=== PATIENT | male | born 1995 | race Caucasian/White ===

== ENCOUNTER 2017-07-22 16:05 | Emergency (ER) | payer MEDICAID, OTHER ==
[~2017-07-22] VITALS: Ht 175.3 cm; Wt 60.0 kg
[~2017-07-22 16:05] MED LIST: ADDE10XR PO; AMOX500T PO; VIST25CA PO
[2017-07-22 16:07] VITALS: BP 111/72; PULSE 82; RESP 16; TEMP 98.6; O2SAT 100
--- NOTE | 2017-07-22 16:29 | PD ---
HPI Chief Complaint: Injury Time Seen by Provider: 16:17 Travel History International Travel<30 days: No Contact w/Intl Traveler<30days: No Traveled to known affect area: No History of Present Illness HPI 21-year-old male presents to the emergency room for evaluation of left ankle pain and swelling after injuring it just prior to arrival. Patient states he was on his skateboard when he tried to do a trick and landed wrong on his ankle. He everted the ankle and heard popping and had immediate pain. States he has been able to hobble but not walk on it. States it swelled up within 5 minutes. He has not applied ice or taken anything for her symptoms. Came straight to the emergency room. No other injuries. Denies paresthesias. Denies chronic medical conditions or daily medications. PFSH Past Medical History Cancer: No Cardiovascular Problems: No Diminished Hearing: No Gastrointestinal Disorders: No Genitourinary: No Implanted Vascular Access Dvce: No Musculoskeletal: No Neurologic: No Psychiatric: No Reproductive: No Respiratory: No Past Surgical History Other Surgery: No Social History Alcohol Use: Yes Tobacco Use: No Substance Use: No Allergies-Medications (Allergen,Severity, Reaction): Coded Allergies: No Known Allergies (Verified , 10/17/15) Reported Meds & Prescriptions Reported Meds & Active Scripts Active Review of Systems Except as stated in HPI: all other systems reviewed are Neg Physical Exam Narrative GENERAL: Well-nourished, well-developed male in no acute distress. Afebrile. SKIN: Focused skin assessment warm/dry. HEAD: Normocephalic. EYES: No scleral icterus. No injection or drainage. NECK: Supple, trachea midline. No JVD or lymphadenopathy. CARDIOVASCULAR: Regular rate and rhythm without murmurs, gallops, or rubs. RESPIRATORY: Breath sounds equal bilaterally. No accessory muscle use. MUSCULOSKELETAL: No cyanosis. Moderate edema of the left lateral malleolus. 2 + dorsalis pedis pulse. Full range motion of the foot and knee. Negative squeeze test. Mild to moderate tenderness to palpation of the lateral malleolus. No medial ankle pain. No knee tenderness. Data Data Last Documented VS Vital Signs Date Time Temp Pulse Resp B/P (MAP) Pulse Ox O2 Delivery O2 Flow Rate FiO2 07/22/17 16:07 98.6 82 16 111/72 (85) 100 Orders Orders Ankle, Complete (Gun3mpy) (07/22/17 16:13) Crutches (07/22/17 17:18) Splint Or Brace Apply/Monitor (07/22/17 17:18) MDM Medical Decision Making Medical Screen Exam Complete: Yes Emergency Medical Condition: Yes Medical Record Reviewed: Yes Differential Diagnosis Sprain, strain, fracture, dislocation Narrative Course 21-year-old male presents to the emergency room for evaluation of left ankle pain and swelling after eversion injury just prior to arrival. Denies any other injuries. Physical exam reveals moderate tenderness to palpation and edema of the left lateral malleolus. No obvious ecchymosis or erythema. 2+ dorsalis pedis pulse and full range motion of the foot and knee. Negative squeeze test. X-ray shows probable fracture of the fifth metatarsal. Fracture does not appear to be displaced. Patient does not have significant pain over the fracture site. He was placed in a posterior short leg splint. Patient discharged with crutches and prescription for Lortab and ibuprofen. Told to follow-up with a primary care physician or return for worsening symptoms. He understands and agrees to plan. Diagnosis Primary Impression: Fracture of fifth metatarsal bone of left foot Qualified Codes: S92.355A - Nondisplaced fracture of fifth metatarsal bone, left foot, initial encounter for closed fracture Referrals: Primary Care Physician Additional Instructions: Use splint and crutches next 2 weeks, then as needed for pain. Lortab as directed, as needed for pain. Do not drink alcohol or drive while taking this medication. Take ibuprofen with food as directed, as needed for pain. Apply ice to the affected area for 20 minutes at a time, as needed for pain and swelling. Follow-up with a primary care physician. Return to the emergency room for worsening symptoms. Med/Other Pt SpecificInfo: Prescription(s) given Disposition: 01 DISCHARGE HOME Condition: Stable Shae Boone Jul 22, 2017 16:29
--- NOTE | 2017-07-22 17:15 | RADRPT ---
EXAM DATE/TIME: 07/22/2017 16:47 [facility] COMPARISON: No previous studies available for comparison. INDICATIONS : Left ankle pain after falling off skateboard and twisting ankle, heard a pop. MEDICAL HISTORY : None. SURGICAL HISTORY : None. ENCOUNTER: Initial ACUITY: 1 day PAIN SCORE: 5/10 LOCATION: Left ankle FINDINGS: 3 views of the left ankle. Extensive lateral superficial soft tissue swelling. Linear lucency is seen at the base of the fifth metatarsal suggesting a nondisplaced fracture. This is seen only on the lat eral view. No other fracture identified. CONCLUSION: Likely fifth metatarsal base fracture seen only on the lateral view. Prominent lateral lower leg soft tissue swelling. Fermín Cordova MD on July 22, 2017 at 17:12 Board Certified Radiologist. This report was verified electronically.
[2017-07-22] MEDS ORDERED: HYDR-3516 PO (17:52)
[2017-07-22] MEDS ORDERED: ACETAMINOPHEN/HYDROcodone 325 MG/5 MG TAB PO ONE (18:45)
== END 2017-07-22 18:55 | disposition home or self-care (01) ==
LOC: NEPD 16:05
DX: S92.355A Nondisplaced fracture of fifth metatarsal bone, left foot, initial encounter for closed fracture (principal); X50.1XXA Overexertion from prolonged static or awkward postures, initial encounter
CPT/HCPCS: 29515; 73610; 99284; E0113